=== PATIENT | female | born 1990 | race African-American/Black ===

== ENCOUNTER 2019-05-10 09:36 | Emergency (ER) | payer OTHER ==
[~2019-05-10] VITALS: Ht 172.7 cm; Wt 104.3 kg
--- NOTE | 2019-05-10 09:51 | NUR ---
ED Nurse Note: pt walked in due to left knee pain, pt stated that she almost fell last night and hit her knee on the stair, no loc, no head trauma. pt is complaining of 6/10 pain and hurts more when she move her knee. pt able to walk, aox 4. will continue to monitor.
--- NOTE | 2019-05-10 10:40 | NUR ---
ED Nurse Note: dietetic technician registered on bedside.
--- NOTE | 2019-05-10 11:18 | Diagnostic Imaging Report ---
EXAM: XR Left Knee, 3 views CLINICAL HISTORY: PAIN TECHNIQUE: Three views of the left knee. COMPARISON: No relevant prior studies available. FINDINGS: Bones/joints: Moderate tricompartmental degenerative osteoarthrosis in the knee, with joint space loss and marginal osteophytes. No visible fracture or dislocation. Soft tissues: Unremarkable. No radiodense foreign bodies. No soft tissue gas lucencies. IMPRESSION: Moderate tricompartmental degenerative osteoarthrosis in the knee.
--- NOTE | 2019-05-10 11:23 | NUR ---
ED Nurse Note: amarjit wrap placed pt left knee. pt able to tolerate.
[2019-05-10] MEDS ORDERED: IBUPROFEN600 MG ORAL (11:26)
[2019-05-10 11:30] VITALS: BP 122/69
--- NOTE | 2019-05-10 11:30 | NUR ---
ER DISCHARGE NOTE: Patient is cleared to be discharged per ERMD, pt is aox4, on room air, with stable vital signs. pt was given dc and prescription instructions, pt was able to verbalize understanding, pt id band removed without complications. pt is able to ambulate with steady gait. pt took all belongings.
--- NOTE | 2019-05-10 12:58 | Emergency Room Report ---
History of Present Illness General Chief Complaint: Lower Extremity Injury Source: Patient Present Illness HPI 29-year-old female presents ED for evaluation. Patient complaining of left knee pain and swelling. States that she tripped and fell yesterday landing directly on her left knee. States she feels swelling and pain. Throbbing, 8 out of 10, nonradiating. Is able to bear weight. Patient states she has been exercising recently and has been feeling on and off pain with swelling after her workouts over the last month. No other aggravating relieving factors. Denies any other associated symptoms Allergies: Coded Allergies: AMOXICILLIN (Verified Allergy, Unknown, 05/10/19) PENICILLINS (Verified Allergy, Unknown, 05/10/19) Patient History Past Medical History: none Past Surgical History: none Pertinent Family History: none Social History: Denies: smoking, alcohol use, drug use Last Menstrual Period: 05/02/19 Now: No Immunizations: UTD Reviewed Nursing Documentation: PMH: Agreed; PSxH: Agreed Nursing Documentation-PMH Past Medical History: No Stated History Review of Systems All Other Systems: negative except mentioned in HPI Physical Exam Vital Signs Date Time Temp Pulse Resp B/P (MAP) Pulse Ox O2 Delivery O2 Flow Rate FiO2 05/10/19 09:43 98.2 84 20 122/69 (86) 96 Room Air Sp02 EP Interpretation: reviewed, normal General Appearance: no apparent distress, alert, GCS 15, non-toxic Head: normocephalic Eyes: bilateral eye normal inspection, bilateral eye PERRL ENT: normal ENT inspection Neck: normal inspection Respiratory: normal inspection Cardiovascular #1: normal inspection Gastrointestinal: normal inspection Rectal: deferred Genitourinary: no CVA tenderness Musculoskeletal: swelling - L knee Neurologic: alert, oriented x3, responsive, motor strength/tone normal, sensory intact, speech normal Psychiatric: normal inspection Skin: normal inspection Lymphatic: normal inspection Medical Decision Making Diagnostic Impression: Primary Impression: Knee pain Qualified Codes: M25.562 - Pain in left knee ER Course Hospital Course 29-year-old F presents to ED complaining of L knee pain s/p trip and fall Differential diagnoses include: Fracture, dislocation, sprain, contusion Clinical course Patient placed on stretcher. After initial history and physical, I ordered xrays of L knee Xrays read shows no acute fracture/dislocation. There is significant tricompartmental DJD placed in amarjit wrap. Findings with patient. Explained that her weight is likely contributing to her arthritis in the knees. The swelling after exercise is likely inflammatory due to the arthritis. Patient states she is already lost some weight. Recommend modification of activity with ice, elevation, NSAIDs. Will provide orthopedic referrals. Diagnosis - knee pain Stable and discharged to home with prescription for Motrin. apply ice, keep elevated. weight bear as tolerated. Followup with PMD/ortho. Return to ED if symptoms recur or worsen Other X-Ray Diagnostic Results Other X-Ray Diagnostic Results : X-Ray ordered: L knee # of Views/Limited Vs Complete: 3 View Indication: Pain EP Interpretation: Yes Interpretation: no dislocation, no soft tissue swelling, no fractures, other - tricompartmental degenerative osteoarthritis Impression: Other - arthritis Electronically Signed by: Electronically signed by Cj Long MD Last Vital Signs Date Time Temp Pulse Resp B/P (MAP) Pulse Ox O2 Delivery O2 Flow Rate FiO2 05/10/19 11:30 98.2 73 20 122/69 96 Room Air Status: improved Disposition: HOME, SELF-CARE Condition: Stable Scripts Ibuprofen* (MOTRIN*) 600 Mg Tablet 600 MG ORAL Q8H PRN for For Pain, #30 TAB 0 Refills Prov: Cj Long MD 05/10/19 [facility]errals: [facility] Open 24 hour /7 days a week by Appointment Only [address] [facility] [address] [facility] [address] Patient Instructions: Arthritis, [id number] Cj Long MD May 10, 2019 12:58
== END 2019-05-10 11:30 | disposition home or self-care (01) ==
LOC: EMR 10:22
DX: M25.562 Pain in left knee (principal); W01.0XXA Fall on same level from slipping, tripping and stumbling without subsequent striking against object, initial encounter; Y92.9 Unspecified place or not applicable; Z88.0 Allergy status to penicillin; M17.12 Unilateral primary osteoarthritis, left knee
CPT/HCPCS: 99283